=== PATIENT | male | born 1995 | race Two or more races ===

== ENCOUNTER → 2021-04-12 | Outpatient (CLI) | payer OTHER ==
--- NOTE | 2021-04-12 12:22 | DIREP ---
PROCEDURE:CT HEAD WITHOUT CONTRAST TECHNIQUE:Axial cuts were obtained through the head, without intravenous contrast material. The images were viewed at brain and bone settings. COMPARISON:[facility], CR, XRAY SCAPULA-LT MIN 2 VIEWS, 04/12/2021, 11:59 AM. INDICATIONS:FALL W17.89XA FINDINGS: VENTRICLES:Normal. CEREBRUM:There is no CT evidence of mass, hemorrhage, or acute infarct. CEREBELLUM:Normal. BRAINSTEM:Normal. SKULL:Normal. SINUSES:Mucosal thickening of multiple ethmoid air cells. OTHER:Negative. CONCLUSION:Normal examination. Dictated by: Tena De Los Santos III, MD on 04/12/2021 at 12:19 PM
--- NOTE | 2021-04-12 12:32 | DIREP ---
PROCEDURE:XRAY SCAPULA-LT COMPARISON:None. INDICATIONS:FALL W17.89 FINDINGS: BONES:Normal. JOINTS:Normal. SOFT TISSUES:Normal. OTHER:No additional findings. CONCLUSION:Normal examination. Dictated by: Tena De Los Santos III, MD on 04/12/2021 at 12:30 PM
--- NOTE | 2021-04-12 12:33 | DIREP ---
PROCEDURE:XRAY SPINE THORACIC 3 VWS COMPARISON:[facility], , XRAY SPINE CERVICAL 2-3VW, 04/12/2021, 11:59 AM. INDICATIONS:FALL W17.89XA FINDINGS: ALIGNMENT:Normal. VERTEBRAE:Normal. DISK SPACES:Normal. OTHER:Normal. CONCLUSION:Normal examination. Dictated by: Tena De Los Santos III, MD on 04/12/2021 at 12:30 PM
--- NOTE | 2021-04-12 13:14 | DIREP ---
PROCEDURE:C-Spine 3 views TECHNIQUE:AP, lateral, and dens views of the cervical spine are provided. The cervicothoracic junction is not well demonstrated on the lateral view. COMPARISON:None. INDICATIONS:FALL W17.89XA FINDINGS: ALIGNMENT:There is straightening of the normal cervical lordosis. VERTEBRAE:Normal. DISK SPACES:Normal. CERVICAL RIBS:None. OTHER:Normal. CONCLUSION: 1. The cervicothoracic junction is not well demonstrated on the lateral view. 2. There is straightening of the normal cervical lordosis, muscle spasm versus positioning. Dictated by: Tena De Los Santos III, MD on 04/12/2021 at 01:12 PM
== END | disposition home or self-care (01) ==
LOC: RAD 11:36
PROVIDERS: ATTEND Nurse Practitioner Adult Health
DX: S06.0X1A Concussion with loss of consciousness of 30 minutes or less, initial encounter (principal); J34.89 Other specified disorders of nose and nasal sinuses; W17.89XA Other fall from one level to another, initial encounter; Y93.89 Activity, other specified; Y92.89 Other specified places as the place of occurrence of the external cause; Y99.8 Other external cause status
CPT/HCPCS: 70450; 72040; 72072; 73010-LT